=== PATIENT | male | born 1990 | race Caucasian/White ===

== ENCOUNTER 2016-07-24 11:17 | Emergency (ER) | payer SELFPAY ==
[~2016-07-24] VITALS: Ht 175.3 cm; Wt 112.0 kg
[2016-07-24 11:24] VITALS: BP_SYST 130
--- NOTE | 2016-07-24 11:25 | NUR ---
PT. TO BED 6, IN PT. GOWN SIDERAILS UP BED DOWN , ASSUMED PT. CARE
--- NOTE | 2016-07-24 11:30 | NUR ---
PT. TO ER AAOx4 CAME IN FOR LEFT KNEE PAIN RELATED TO A FALL THAT HAPPENED AT HOME ABOUT A WEEK AND A HALF AGO. PER PT. HE SLIPPED ON SOAPY FLOOR TWISTED HIS KNEE, BEEN WALKING WITH A WALKER, DENIES GOING TO URGENT CARE, STATES THAT HE THOUGHT PAIN WOULD GO AWAY BUT IT DIDN'T, PAIN 4/10 WITH AMBULATION, DENIES ANY OTHER COMPLAINTS
--- NOTE | 2016-07-24 11:45 | NUR ---
DR. KIRK AT BEDSIDE EXAMINING THE PT.
--- NOTE | 2016-07-24 12:04 | NUR ---
PT. OUT TO RADIOLOGY VIA WHEELCHAIR
--- NOTE | 2016-07-24 12:08 | NUR ---
PT. BACK TO ROOM 6 FROM RADIOLOGY
[2016-07-24 12:40] VITALS: BP_SYST 127
--- NOTE | 2016-07-24 12:40 | NUR ---
Patient given written and verbal discharge instructions and verbalizes understanding. ER MD DR. KIRK discussed with patient the results and treatment provided. Patient in stable condition. ID arm band removed. Rx of NAPROXEN given. Patient educated on pain management and to follow up with PMD. Pain Scale 0/10. Opportunity for questions provided and answered.
== END 2016-07-24 12:40 | disposition home or self-care (01) ==
LOC: SED 11:17
DX: S83.92XA Sprain of unspecified site of left knee, initial encounter (principal); X50.1XXA Overexertion from prolonged static or awkward postures, initial encounter; Y93.89 Activity, other specified; Y92.89 Other specified places as the place of occurrence of the external cause; Y99.8 Other external cause status
CPT/HCPCS: 73560-TC; 99284